=== PATIENT | male | born 1975 | race Caucasian/White ===

== ENCOUNTER 2024-08-14 12:23 | Emergency (ER) | payer SELFPAY ==
[2024-08-14 12:27] VITALS: BP 128/74; PULSE 110; RESP 18; O2SAT 97
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
[2024-08-14 13:15] VITALS: RESP 18
== END 2024-08-14 13:18 ==
PROVIDERS: Emergency Provider Registered Nurse Emergency
DX: S80.211A Abrasion, right knee, initial encounter (principal); S00.81XA Abrasion of other part of head, initial encounter; Z59.00 Homelessness unspecified; X58.XXXA Exposure to other specified factors, initial encounter
CPT/HCPCS: 99285; 99283